=== PATIENT | female | born 1995 | race Two or more races ===

== ENCOUNTER 2024-04-11 06:50 | Day surgery (SDC) | payer MEDICAID, SELFPAY ==
[2024-04-10 14:46] LABS: HCG Qualitative,Urine Negative
[2024-04-11] VITALS (10 sets, daily range): BP systolic 123–151; BP diastolic 94–111; PULSE 79–107; RESP 13–23; TEMP 36.5–37; O2SAT 96–100; BMI 24.8
[2024-04-11] MEDS: DiphenhydrAMINE INJ 50 MG/ML VIAL 25 MG IV (07:28)
[2024-04-11] MEDS: MIDAZOLAM INJ 1 MG/ML VIAL 2 ML (ASD USE ONLY) 2 MG IV (07:31)
[2024-04-11] MEDS: fentaNYL CIT INJ 50 mCg/ML AMP 2ML (ASD USE ONLY) IV (07:32)
--- NOTE | 2024-04-11 08:40 | SUR.PHASEII ---
0751: Pt received for recovery. Pt groggy, but awake. Resp even, unlabored. VS stable. Denies pain. 0815: Pt more alert. VS stable. Denies pain. Sitting up tolerating po fluids with no difficulty swallowing and no n/v. 0835: Pt fully awake, oriented x3. Pt assisted to restroom. Ambulation steady. Pt and sister stated understanding of discharge instructions. Pt discharged from [facility] in stable condition.
== END 2024-04-11 08:35 | disposition home or self-care (01) ==
PROVIDERS: PCP Nurse Practitioner Family; Referring Provider Surgery; Visit Provider Surgery
PROC: 0DBE8ZX Excision of Large Intestine, Via Natural or Artificial Opening Endoscopic, Diagnostic (ICD-10-PCS; CPT 45380; principal; 2024-04-11 07:30)
DX: K64.1 Second degree hemorrhoids (principal); K63.5 Polyp of colon
CPT/HCPCS: 45380; 81025; J1200; J2250; J3010